=== PATIENT | male | born 1990 | race Two or more races ===

== ENCOUNTER 2019-04-17 15:35 | Outpatient (AMB) | payer OTHER, SELFPAY ==
--- NOTE | 2019-04-17 15:44 | URCARE_ITS ---
Intake Ht./Wt. Decline/Exclusions Patient Declined Height and Weight this visit: No PT Meets exclusion criteria: No Intake Visit Reasons: UC Abscess Triage Triage Allergy / Med Rec Allergies codeine Allergy (Unknown, Unverified 04/17/19 15:46) RASH,NAUSA Medication Reconciliation sulfamethoxazole 800 mg-trimethoprim 160 mg tablet 1 tab PO BID 7 Days #14 tab 04/15/19 [Rx Confirmed 04/17/19] Arrival PCP or OBGYN visit in last 3 months: No [facility] Hx Congestive Heart Failure: No Hx Diabetes Mellitus Type 1: No Hx Diabetes Mellitus Type 2: No Hx Renal Disease: No Hx Chronic Obstructive Pulmonary Disease (COPD): No Past Medical History Reviewed and agree with Nursing documentation.: Yes Cardiac Medical History Hx Congestive Heart Failure: No Endocrine Medical History Hx Diabetes Mellitus Type 1: No Hx Diabetes Mellitus Type 2: No Genitourinary Medical History Hx Renal Disease: No Respiratory Medical History Hx COPD: No HPI Cellulitis/Abscess Buttock: Is a 28-year-old male who presents the urgent care for abscess repacking. He states he had an abscess to his buttocks I&D'd 2 days ago. No fever chills nausea vomiting or diarrhea. He is taking his antibiotics. No other complaints at time. Current symptoms: denies fever(s) Duration: 1-3 days Review of Systems (UC) Review of Systems All systems reviewed & no additional complaints except as documented Const Constitutional: Denies fever(s) Skin/Breast Skin/Breast: Reports boil Exam (UC) Limitations: no limitations General Appearance: alert, in no apparent distress, comfortable, cooperative, healthy appearing, well developed and well groomed Head exam: atraumatic, normocephalic and normal inspection Eye exam: Reports normal appearance and Reports EOMI ENT exam: Present normal exam Neck Exam: Present normal inspection Chest/Breast Exam: Present normal inspection SPO2%: 100% SPO2 type: Room Air SPO2% Normal/Abnormal: Normal Respiratory exam: Present normal lung sounds bilaterally, normal respiratory effort, able to speak in complete sentences and clear to ascultation bilaterally Cardiovascular exam: Present regular rate and regular rhythm Extremities exam: normal inspection Back exam: Present normal inspection Neurological Exam: Present alert, awake and oriented X3 Psychiatric exam: Present normal affect and normal mood Skin exam: Present warm, dry, intact and normal color Body image: 1. I&D site to the perianal region with packing in place. There is a small amount of foul-smelling purulent discharge. No erythema to the surrounding tissue. Minimal tenderness is noted. Appears to be healing well. Office Procedures Level of Care Nursing/Assessment/Reassessment Patient Status: Established Patient Nursing Assessment/Reassessment: Triage Asessment, Initial Vital Signs and RN General Assessments Coordination of Care: DC Instructions Simple 1-2 sets Established Patient Charge Established Patient Point Assignment: 40 Established Patient Point Assignment: EP Level 2 (40-75) Procedures: Pulse Ox reading: Yes [facility] Nursing Order [facility] Nursing Order:: abcess washed out allevy dressing sent home Supplemental Info REPACKING: Risks and benefits were explained and verbal consent was obtained for the procedure. The incised abscess was examined and the packing was removed. The wound was probed with a Qtip and irrigated as appropriate. Any purulent discharge was expressed from the abscess. Abscess was repacked with the appropriate sized plain gauze by the nursing staff. Patient tolerated procedure well. No complications. Assessment and Plan Assessment & Plan (1) Abscess of buttock: Plan Details Other Orders: Orders: [facility] Nursing Order Today Additional Comments: Follow up with your doctor in 3-5 days for recheck and reevaluation. Take any / all medication(s) as directed. If worse, not improving, or any concerns go immediately to the EMERGENCY ROOM. DISCHARGE NOTE: I emphasized the need for follow-up with their primary care provider. Failure to follow-up could result in a poor outcome or failure of treatment altogether. If the patient is unable to follow-up with their primary care provider, they are to go to the Emergency Department if their symptoms persist or worsen. I have reviewed the discharge treatment plan and follow-up instructions with the patient and/or patient representatives, addressed any concerns, and answered any and all questions. They have verbalized understanding of the discharge treatment plan. Instructions: ED Staph Skin Infec Abscess IandD Additional Information PA/BORDER MEASURER Supervising Physician: Héctor Rubio
[2019-04-17 15:46] VITALS: BP 150/98; PULSE 90; RESP 18; TEMP 36.8; O2SAT 100; BMI 27.8
== END 2019-04-17 16:17 | disposition home or self-care (01) ==
PROVIDERS: PCP Family Medicine; Referring Provider Family Medicine; Visit Provider Physician Assistant
DX: I10 Essential (primary) hypertension (principal)

== ENCOUNTER → 2025-01-19 | Outpatient (CLI) | payer OTHER, SELFPAY ==
[2025-01-19 12:05] LABS: Basophils # (Auto) 0.0 Thou/mm3 (0.0-0.2); Basophils % (Auto) 0 % (0-2.5); Eosinophils # (Auto) 0.0 Thou/mm3 (0.0-0.5); Eosinophils % (Auto) 0 % (0-10); Hematocrit 44.2 % (41.0-53.0); Hemoglobin 16.1 g/dL (13.5-16.0); Immature Granulocytes Auto 0.01 Thou/mm3 (0.00-0.00); Lymphocytes # (Auto) 2.2 Thou/mm3 (1.0-4.8); Lymphocytes % (Auto) 36 % (10-50); Mean Corpuscular HGB Conc 36.4 g/dl (31.0-37.0); Mean Corpuscular Hemoglobin 32.7 pg (25.0-35.0); Mean Corpuscular Volume 90 fL (80-100); Monocytes # (Auto) 0.4 Thou/mm3 (0.0-0.8); Monocytes % (Auto) 7 % (0-12); Neutrophils # (Auto) 3.4 Thou/mm3 (1.8-7.7); Neutrophils % (Auto) 56 % (37-80); Nucleated Red Blood Cell # 0.00 Thou/mm3 (0.00-0.00); Nucleated Red Blood Cell % 0 /100 WBC (0); Platelet Count 263 Thou/mm3 (140-440); RDW Standard Deviation 38.2 fL (35.1-43.9); Red Blood Count 4.92 Miln/mm3 (4.50-5.90); White Blood Count 6.1 Thou/mm3 (3.8-10.6)
[2025-01-19 12:20] LABS: Glucose Estimated Average 97 mg/dL (80-131); Hemoglobin A1C 5.0 % Hgb (4.8-6.0)
[2025-01-19 12:44] LABS: Alanine Aminotransferase 39 U/L (10-49); Albumin, Serum 5.4 gm/dL (3.5-5.0); Albumin/Globulin Ratio 1.9 (1.2-2.2); Alkaline Phosphatase 80 U/L (46-116); Anion Gap 11 (7-16); Aspartate Amino Transferase 29 U/L (0-34); BUN/Creatinine Ratio 12 Ratio (12-20); Bilirubin,Total 0.7 mg/dL (0.3-1.2); Blood Urea Nitrogen 13 mg/dL (9-23); Calcium 9.8 mg/dL (8.3-10.6); Calcium (Corrected) 9.8 mg/dL (8.5-10.1); Carbon Dioxide 27.0 mMol/L (20.0-31.0); Cardiac Risk Estimate 4.3 RATIO (4.0-6.7); Chloride 104 mMol/L (98-107); Cholesterol 235 mg/dL (132-200); Creatinine (Component) 1.1 mg/dL (0.6-1.3); Globulin 2.8 gm/dL (2.3-3.5); Glucose 95 mg/dL (74-106); HDL Cholesterol 55 mg/dL (40-60); LDL Cholesterol,Calculated 160 mg/dL (0-130); Osmolality,Calculated 283 (275-295); Potassium 4.1 mMol/L (3.4-5.1); Sodium 142 mMol/L (136-145); Thyroid Stimulating Hormone 1.76 uIU/mL (0.55-4.78); Total Protein 8.2 gm/dL (5.7-8.2); Triglycerides 98 mg/dL (30-150); eGFR > 60 See Note
== END | disposition home or self-care (01) ==
PROVIDERS: PCP Student in an Organized Health Care Education/Training Program; Referring Provider Student in an Organized Health Care Education/Training Program; Visit Provider Student in an Organized Health Care Education/Training Program
DX: R03.0 Elevated blood-pressure reading, without diagnosis of hypertension (principal); E78.2 Mixed hyperlipidemia; Z83.3 Family history of diabetes mellitus; Z82.49 Family history of ischemic heart disease and other diseases of the circulatory system
CPT/HCPCS: 36415; 80053; 80061; 83036; 84443; 85025

== ENCOUNTER 2025-01-25 10:56 | Outpatient (AMB) | payer OTHER, SELFPAY ==
--- NOTE | 2025-01-25 11:20 | PD.GSCLVISIT ---
Vital Signs - [facility] 01/25/25 11:24 Height 1.8 m Height Method Measured Weight 92.533 kg Weight Measurement Method Standing Scale BMI 28.4 BP 153/79 H Blood Pressure Source Automatic Cuff Blood Pressure Location Left Upper Arm Position Sitting Respiration 16 Pulse 95 Pulse Source Monitor Temp 98.3 F Temp Source Temporal Artery Scan Pulse Oximetry (%) 98 Oxygen Delivery Method Room Air Med/Allergies Allergies & Medications Allergies codeine Allergy (Unknown, Verified 01/25/25 11:25) RASH,NAUSA Medication Reconciliation No Known Home Medications 01/25/25 [History Confirmed 01/25/25] MA Intake Visit Data Collection New Patient or Established: New Patient (never been to [facility]) Seen by Clinical Staff ONLY (RN/MA): No Reason for Visit:: ANAL ABCESS Pain Present Currently: Yes Pain Location: Rectum Pain scale:: 3 Pain Scale Used: Marroquin-Andersen/Numerical Product/Industry Consultant Required: No PCP or OBGYN visit in last 3 months: Yes Hx Now: No Do You Feel Safe at Home: Yes Authorities Contacted: N/A Smoking Status Smoking Status: Never smoker Immunization / Flu Flu Vaccine in the Last 12 Months: Yes Flu Vaccine Exclusion Criteria: Already Received Past Medical History Past Medical History CARDIAC: Negative Congestive Heart Failure RESPIRATORY: Negative Chronic Obstructive Pulmonary Disease (COPD) GENITOURINARY: Negative Renal Disease ENDOCRINE: Negative Diabetes Mellitus Type 1 or Diabetes Mellitus Type 2 Social History SMOKING STATUS: Smoking status: Never smoker HPI HPI Narrative 34M referred for perianal drainage. Patient states he has noticed it for the past 2 months, it is usually yellow in nature but sometimes contains blood. Some days have more drainage than others, and he has had periods where there is no drainage but then it feels like it needs to burst. At the moment he has minimal pain but does notice some discomfort. His bowel movements are soft without any straining or diarrhea and he is not currently using any remedies. He states that 2 years ago he had an abscess, he believes in the same area which was incised and drained PMH: None PSH: Wrist and knee surgery Meds: None Allergies: Codeine Family history: No known IBD or colorectal cancer ROS Review of Systems Systems Reviewed: All systems reviewed, normal except as documented Objective/Exam General General Appearance: alert, cooperative and well groomed Resp Respiratory exam: Absent respiratory distress Rectal Rectal exam: Present other (Perianal fistula opening approximately 1 cm from the anal verge at the right posterior anus, no erythema or fluctuance); Absent hemorrhoids Assessment & Plan Diagnosis / Problem List (1) Perianal fistula: Status: Acute Assessment & Plan: 34M presenting with signs and symptoms of a perianal fistula. I explained that surgery is undertaken in 2 steps, first with seton placement followed by definitive surgery when the drainage is noticeably decreased. I explained risks of pain, increased drainage as well as fecal incontinence after definitive surgery. All questions were answered and patient is agreeable to proceed Office Procedures GNS Level of Care Nursing/Assessment Patient Status: Initial/New Patient Nursing Assessment/Reassesment: Medication Reconciliation, Update PMH in EMR and Vital Signs Coordination of Care: Complex Care and Chronic Disease 1-5, Education Complex Pt/Fam, Consent,records obtained, informed consent, Results/Orders obtained and Staff clarify orders New Patient Charge New Patient Point Assignment: 1094 New Patient Point Charge: PHARMACOVIGILANCE SAFETY EXPERT Level 2 ([id number]) Patient Portal Questionaires Social History Tobacco History Smoking Status: Never smoker Domestic Abuse History Do You Feel Safe at Home: Yes Review of Systems Report any current symptoms Only answer those that you have currently: Past Medical History Past Medical History Have you ever been diagnosed with any of the following: Cardiology Problems Congestive Heart Failure: No Respiratory Problems Chronic Obstructive Pulmonary Disease (COPD): No Genital/Urinary Problems Renal Disease: No Endocrine Problems Diabetes Mellitus Type 1: No Diabetes Mellitus Type 2: No
[2025-01-25 11:24] VITALS: BP 153/79; PULSE 95; RESP 16; TEMP 36.8; O2SAT 98; BMI 28.4
== END 2025-01-25 11:51 | disposition home or self-care (01) ==
PROVIDERS: PCP Student in an Organized Health Care Education/Training Program; Referring Provider Student in an Organized Health Care Education/Training Program; Supervising Provider Surgery; Visit Provider Surgery
DX: K60.30 Anal fistula, unspecified (principal)
CPT/HCPCS: 99202; G0463